=== PATIENT | male | born 1975 | race Caucasian/White ===

== ENCOUNTER 2018-11-17 08:49 | Emergency (ER) | payer BC, MEDICAID ==
[~2018-11-17] VITALS: Ht 188 cm; Wt 71.7 kg
[2018-11-17] MEDS ORDERED: LISINOPRIL5 MG ORAL (08:59)
[2018-11-17] MEDS ORDERED: AMLODIPINE BESYL5 MG ORAL (08:59)
[2018-11-17] MEDS ORDERED: Bacitracin Oint UD TOPIC ONE ×2 (09:13→09:30)
[2018-11-17] MEDS ORDERED: Tylenol #3 tab (300mg/30mg) PO ONE (09:15)
[2018-11-17 09:17] VITALS: BP 123/86
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
[2018-11-17] MEDS ORDERED: LIDODERM700 M1 TOPIC (10:09)
[2018-11-17] MEDS ORDERED: IBUPROFEN600 MG ORAL (10:09)
[2018-11-17] MEDS ORDERED: ACETAMINOPHEN-1 EAC1 ORAL (10:09)
--- NOTE | 2018-11-17 10:46 | Diagnostic Imaging Report ---
Indication: Trauma. Comparison: None Findings: 4 views of the left chest wall was obtained for evaluation of the ribs. There is no acute fracture identified. Bones are osteopenic. There is no soft tissue swelling demonstrated. The lung is essentially clear. There is no pneumothorax. The costophrenic angle is sharp. Other osseous structures visualized are unremarkable. Impression: Negative left unilateral rib series
[2018-11-17 10:56] VITALS: BP 123/86
--- NOTE | 2018-11-17 10:58 | NUR ---
ER DISCHARGE NOTE: Patient is cleared to be discharged per ERMD, pt is aox4, on room air, with stable vital signs. pt was given dc and prescription instructions, pt was able to verbalize understanding, pt id band and iv site removed without complications. pt is able to ambulate with steady gait. pt took all belongings.
== END 2018-11-17 10:20 | disposition home or self-care (01) ==
LOC: EMR 09:57
DX: S20.212A Contusion of left front wall of thorax, initial encounter (principal); S00.01XA Abrasion of scalp, initial encounter; Y04.2XXA Assault by strike against or bumped into by another person, initial encounter; Y92.89 Other specified places as the place of occurrence of the external cause; I10 Essential (primary) hypertension
CPT/HCPCS: 99283